=== PATIENT | female | born 1955 | race Caucasian/White ===

== ENCOUNTER → 2017-08-29 | Day surgery (SDC) | payer OTHER ==
[~2017-08-29] MED LIST: Lactated Ringers 1,000 ML IV SCH; Lidocaine 1% 4 ML ONE; Ondansetron 4 MG/2 ML SDV ONE; Propofol 200 MG/20 ML SDV ONE; Sodium Chloride 0.9% 10 ML Syringe FLUSH PRN; fentaNYL 100 MCG/2 ML SDV ONE
[2017-08-29] MEDS: Lidocaine 1%/Sod Bicarbonate in NS 8.4% 1 ML Syringe IDERM PRN ×2 (07:19→07:20)
--- NOTE | 2017-08-29 07:43 | PCM.PREANE ---
Preanesthetic Assessment - Anesthesia/Transfusion/Family Hx Anesthesia History: Prior Anesthesia Without Reaction Family History of Anesthesia Reaction: No - Review of Systems General: Fatigue Pulmonary: No Symptoms Cardiovascular: No Symptoms Gastrointestinal: No Symptoms Neurological: No Symptoms Other: Reports: None - Physical Assessment NPO Status Date: 08/28/17 NPO Status Time: 20:30 O2 Sat by Pulse Oximetry: 97 Respiratory Rate: 16 Vital Signs: Last Vital Signs Temp 36.4 C 08/29/17 07:00 Pulse 75 08/29/17 07:00 Resp 16 08/29/17 07:00 BP 111/79 08/29/17 07:00 Pulse Ox 97 08/29/17 07:00 Height: 1.75 m Weight: 68.946 kg ASA Class: 1 Mental Status: Alert & Oriented x3 Airway Class: Mallampati = 2 Dentition: Reports: Normal Dentition Thyro-Mental Finger Breadths: 2 Mouth Opening Finger Breadths: 2 ROM/Head Extension: Full Lungs: Clear to Auscultation, Normal Respiratory Effort Cardiovascular: Regular Rate, Regular Rhythm - Allergies Allergies/Adverse Reactions: Allergies Allergy/AdvReac Type Severity Reaction Status Date / Time No Known Allergies Allergy Verified 08/28/17 13:28 - Acknowledgements Anesthesia Type Planned: MAC Pt an Appropriate Candidate for the Planned Anesthesia: Yes Alternatives and Risks of Anesthesia Discussed w Pt/Guardian: Yes Pt/Guardian Understands and Agrees with Anesthesia Plan: Yes PreAnesthesia Questionnaire HEENT History: Reports: Allergic Rhinitis, Impaired Vision Cardiovascular History: Reports: None Respiratory History: Reports: Other (See Below) Other Respiratory History: URI, pharyngitits Gastrointestinal History: Reports: Colon Polyp Genitourinary History: Reports: None KEY ACCOUNT REPRESENTATIVE History: Reports: None Musculoskeletal History: Reports: None Neurological History: Reports: None Psychiatric History: Reports: Other (See Below) Other Psychiatric History: fatigue, grief reaction Endocrine/Metabolic History: Reports: Vitamin D Deficiency Hematologic History: Reports: None Immunologic History: Reports: None Oncologic (Cancer) History: Reports: Basal Cell Carcinoma Dermatologic History: Reports: None - Past Surgical History Head Surgeries/Procedures: Reports: None HEENT Surgical History: Reports: Naso-Sinus Surgery, Tonsillectomy Cardiovascular Surgical History: Reports: None Respiratory Surgical History: Reports: None GI Surgical History: Reports: Appendectomy, Colonoscopy Female Surgical History: Reports: Tubal Ligation Male Surgical History: Reports: None Endocrine Surgical History: Reports: None Neurological Surgical History: Reports: None Musculoskeletal Surgical History: Reports: None Oncologic Surgical History: Reports: None Dermatological Surgical History: Reports: None - SUBSTANCE USE Smoking Status *Q: Never Smoker Recreational Drug Use History: No - HOME MEDS Home Medications: Home Meds Cholecalciferol (Vitamin D3) [Vitamin D3] 50,000 units PO MOFR 08/28/17 [History ] Cyanocobalamin (Vitamin B-12) [Vitamin B-12] 1,000 mcg PO DAILY 08/28/17 [ History] Melatonin 5 mg PO DAILY 08/28/17 [History] Multivitamin [Multi-Day Vitamins] 1 tab PO DAILY 08/28/17 [History] - CURRENT (IN HOUSE) MEDS Current Meds: Current Medications Lactated Ringer's (Ringers, Lactated) 1,000 mls @ 125 mls/hr IV ASDIRECTED ANTOLIN Lidocaine/Sodium Bicarbonate (Buffered Lidocaine 1% In Ns 8.4%) 0.25 ml IDERM ONETIME PRN PRN Reason: Prior to IV Start Sodium Chloride (Saline Flush) 10 ml FLUSH ASDIRECTED PRN PRN Reason: Keep Vein Open Discontinued Medications Fentanyl (Sublimaze) Confirm Administered Dose 100 mcg .ROUTE .STK-MED ONE Stop: 08/29/17 07:27 Lidocaine HCl (Xylocaine-Mpf 1%) Confirm Administered Dose 4 mls @ as directed .ROUTE .STK-MED ONE Stop: 08/29/17 07:26 Propofol (Diprivan 20 Ml) Confirm Administered Dose 400 mg .ROUTE .STK-MED ONE Stop: 08/29/17 07:27
--- NOTE | 2017-08-29 08:32 | PCM.OPNOTE ---
- General Post-Op/Procedure Note Date of Surgery/Procedure: 08/29/17 Operative Procedure(s): Colonoscopy Findings: Sigmoid diverticulosis Tortuous colon Vacuous colon Pre Op Diagnosis: Screening colonoscopy Post-Op Diagnosis: Uncomplicated sigmoid diverticulosis Anesthesia Technique: MAC, Moderate Sedation Primary Surgeon: Zac Guillen EBL in mLs: 0 Complications: None Condition: Good Free Text/Narrative:: After adequate IV sedation and analgesia was obtained with monitoring the patient was placed on her left side. Perianal inspection and digital rectal examination were performed and were normal. A lubricated colonoscope was inserted into the rectum then slowly advanced through a very tortuous and vacuous colon using abdominal pressure and placement in the supine position to reach the cecum. The appendiceal orifice and ileocecal valve were identified. The bowel preparation was excellent. The cecum ascending colon transverse and descending colons were endoscopically normal with no mass lesions or inflammatory changes seen. The sigmoid had a few scattered diverticuli which I photographed for the record. The rectum in both views was unremarkable. Air was removed as I finished the procedure which she tolerated well. There were no procedural complications.
--- NOTE | 2017-08-29 08:36 | PCM48HPAN ---
Post Anesthesia Note - EVALUATION WITHIN 48HRS OF ANESTHETIC Vital Signs in Normal Range: Yes Patient Participated in Evaluation: Yes Respiratory Function Stable: Yes Airway Patent: Yes Cardiovascular Function Stable: Yes Hydration Status Stable: Yes Pain Control Satisfactory: Yes Nausea and Vomiting Control Satisfactory: Yes Mental Status Recovered: Yes
== END | disposition home or self-care (01) ==
LOC: JD.SDS 06:54
PROVIDERS: ATTEND Surgery
DX: Z12.11 Encounter for screening for malignant neoplasm of colon (principal); K57.30 Diverticulosis of large intestine without perforation or abscess without bleeding; J30.9 Allergic rhinitis, unspecified; J02.9 Acute pharyngitis, unspecified; E55.9 Vitamin D deficiency, unspecified; Z79.899 Other long term (current) drug therapy; Z90.49 Acquired absence of other specified parts of digestive tract; Z90.89 Acquired absence of other organs; Z98.51 Tubal ligation status; Z98.890 Other specified postprocedural states; Z80.0 Family history of malignant neoplasm of digestive organs
CPT/HCPCS: 45378; J2405; J3010; J7120; 00812; J2001; J2704

== ENCOUNTER 2020-04-11 06:51 | Day surgery (SDC) | payer OTHER ==
[~2020-04-11 06:51] MED LIST changes: -Lidocaine 1% 4 ML ONE; +Lidocaine 1%/Sod Bicarbonate in NS 8.4% 1 ML Syringe IDERM PRN; -Ondansetron 4 MG/2 ML SDV ONE; -Propofol 200 MG/20 ML SDV ONE; -fentaNYL 100 MCG/2 ML SDV ONE
[2020-04-11] MEDS ORDERED: Propofol 200 MG/20 ML SDV ONE (07:15)
[2020-04-11] MEDS ORDERED: fentaNYL 100 MCG/2 ML SDV ONE (07:15)
[2020-04-11] MEDS ORDERED: Midazolam 1 MG/ML 2 ML SDV ONE (07:15)
[2020-04-11] MEDS ORDERED: Ondansetron 4 MG/2 ML SDV ONE (07:16)
[2020-04-11] MEDS ORDERED: Lidocaine 1% with EPINEPHrine 1:100,000 20 ML MDV ONE (07:21)
[2020-04-11] MEDS ORDERED: Sodium Chloride 0.9% 20 ML ONE (07:21)
[2020-04-11] MEDS ORDERED: Lidocaine 1% 4 ML ONE (07:23)
--- NOTE | 2020-04-11 07:46 | PCM.PREANE ---
Preanesthetic Assessment - Procedure Proposed Procedure: Bladder sling - Anesthesia/Transfusion/Family Hx Anesthesia History: Prior Anesthesia Without Reaction Transfusion History: Unknown - Review of Systems General: No Symptoms Pulmonary: No Symptoms Cardiovascular: No Symptoms Gastrointestinal: No Symptoms Neurological: No Symptoms Other: Reports: None - Physical Assessment NPO Status Date: 04/10/20 NPO Status Time: 19:00 ASA Class: 2 Mental Status: Alert & Oriented x3 Airway Class: Mallampati = 2 Dentition: Reports: Normal Dentition Thyro-Mental Finger Breadths: 3 Mouth Opening Finger Breadths: 3 ROM/Head Extension: Full Lungs: Clear to Auscultation, Normal Respiratory Effort Cardiovascular: Regular Rate, Regular Rhythm - Allergies Allergies/Adverse Reactions: Allergies Allergy/AdvReac Type Severity Reaction Status Date / Time No Known Allergies Allergy Verified 04/11/20 08:22 - Anesthesia Plan Beta Coco: Metoprolol Med Last Dose Date: 04/11/20 Med Last Dose Time: 06:00 - Acknowledgements Anesthesia Type Planned: General Anesthesia Pt an Appropriate Candidate for the Planned Anesthesia: Yes Alternatives and Risks of Anesthesia Discussed w Pt/Guardian: Yes Pt/Guardian Understands and Agrees with Anesthesia Plan: Yes PreAnesthesia Questionnaire HEENT History: Reports: Allergic Rhinitis, Impaired Vision Cardiovascular History: Reports: High Cholesterol, Other (See Below) Other Cardiovascular History: ABNORMAL STRESS TEST, T WAVE INVERSION Respiratory History: Reports: Other (See Below) Other Respiratory History: URI, pharyngitits Gastrointestinal History: Reports: Colon Polyp, Other (See Below) Other Gastrointestinal History: BILATERAL GROIN PAIN, DIARRHEA, FECAL URGENCY Genitourinary History: Reports: Other (See Below) Other Genitourinary History: STRESS URINARY INCONTINENCE 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 Musculoskeletal History: Reports: Other (See Below) Other Musculoskeletal History: LUMBAR BACK PAIN, LEG PAIN Neurological History: Reports: Other (See Below) Other Neuro History: BILATERAL FEET NUMBNESS AND TINGLING Psychiatric History: Reports: Other (See Below) Other Psychiatric History: fatigue, grief reaction Endocrine/Metabolic History: Reports: Vitamin D Deficiency Hematologic History: Reports: None Immunologic History: Reports: None Oncologic (Cancer) History: Reports: Basal Cell Carcinoma Dermatologic History: Reports: Other (See Below) Other Dermatologic History: BASAL CELL CARCINOMA - Past Surgical History Head Surgeries/Procedures: Reports: None HEENT Surgical History: Reports: Naso-Sinus Surgery, Tonsillectomy Cardiovascular Surgical History: Reports: None Respiratory Surgical History: Reports: None GI Surgical History: Reports: Appendectomy, Colonoscopy Female Surgical History: Reports: Tubal Ligation Male Surgical History: Reports: None Endocrine Surgical History: Reports: None Neurological Surgical History: Reports: None Musculoskeletal Surgical History: Reports: None Oncologic Surgical History: Reports: None Dermatological Surgical History: Reports: None - SUBSTANCE USE Tobacco Use Status *Q: Never Tobacco User Days Per Week of Alcohol Use: 3 Number of Drinks Per Day: 1 Total Drinks Per Week: 3 - HOME MEDS Home Medications: Home Meds Cholecalciferol (Vitamin D3) [Vitamin D3] 50,000 units PO ULLOA 08/28/17 [History] Melatonin 5 mg PO BEDTIME PRN 08/28/17 [History] Multivitamin [Multi-Day Vitamins] 1 tab PO DAILY 08/28/17 [History] Acetaminophen [Tylenol Arthritis] 650 mg PO Q4H PRN 04/10/20 [History] Cholecalciferol (Vitamin D3) [Vitamin D3] 2,000 unit PO [id number] 04/10/20 [History] Inulin [Fiber Gummies] 2 gm PO DAILY 04/10/20 [History] Metoprolol Tartrate 12.5 mg PO BID 04/10/20 [History] Oxybutynin [Oxytrol] 1 patch TOP ASDIRECTED PRN 04/10/20 [History] - CURRENT (IN HOUSE) MEDS Current Meds: Current Medications Lactated Ringer's (Ringers, Lactated) 1,000 mls @ 125 mls/hr IV ASDIRECTED ANTOLIN Stop: 04/11/20 23:00 Lidocaine/Sodium Bicarbonate (Buffered Lidocaine 1% In Ns 8.4%) 0.25 ml IDERM ONETIME PRN PRN Reason: Prior to IV Start Stop: 04/11/20 18:00 Sodium Chloride (Saline Flush) 10 ml FLUSH ASDIRECTED PRN PRN Reason: Keep Vein Open Stop: 04/11/20 18:00 Discontinued Medications Fentanyl (Sublimaze) Confirm Administered Dose 100 mcg .ROUTE .STK-MED ONE Stop: 04/11/20 07:16 Sodium Chloride (Normal Saline) Confirm Administered Dose 20 mls @ as directed .ROUTE .STK-MED ONE Stop: 04/11/20 07:22 Lidocaine HCl (Xylocaine-Mpf 1%) Confirm Administered Dose 4 mls @ as directed .ROUTE .STK-MED ONE Stop: 04/11/20 07:24 Lidocaine/Epinephrine (Xylocaine 1% With Epinephrine 1:100,000) Confirm Administered Dose 20 ml .ROUTE .STK-MED ONE Stop: 04/11/20 07:22 Midazolam HCl (Versed 1 Mg/Ml) Confirm Administered Dose 2 mg .ROUTE .STK-MED ONE Stop: 04/11/20 07:16 Ondansetron HCl (Zofran) Confirm Administered Dose 8 mg .ROUTE .STK-MED ONE Stop: 04/11/20 07:17 Propofol (Diprivan 20 Ml) Confirm Administered Dose 200 mg .ROUTE .STK-MED ONE Stop: 04/11/20 07:16
[2020-04-11] MEDS ORDERED: HYDROmorphone 0.5 MG/0.5 ML Syringe IVPUSH PRN (09:04)
[2020-04-11] MEDS ORDERED: fentaNYL 100 MCG/2 ML SDV IVPUSH PRN (09:04)
--- NOTE | 2020-04-11 09:05 | PCM.OPNOTE ---
- General Post-Op/Procedure Note Date of Surgery/Procedure: 04/11/20 Operative Procedure(s): Tension free transvaginal tape mid urethral sling with cystoscopy Findings: Grade 2 cystocele with otherwise normal-appearing vaginal mucosa. Normal- appearing bladder mucosa with ureteral jetting noted from bilateral ureteral openings. Pre Op Diagnosis: Stress urinary incontinence Post-Op Diagnosis: Same Anesthesia Technique: General LMA Primary Surgeon: Bogdan Clemons Anesthesia Provider: Bo Taylor Benefits Specialist Recruiter: Rufino Vee Benefits Specialist Recruiter: Ealina Maya I ([place] student) Reason Benefits Specialist Recruiter Was Necessary: Patient safety and reduction of morbidity and mortality Role of Benefits Specialist Recruiter: Retraction for visualization Pathology: None Fluid Replacement, Intraop: 900 Output, Urine Amount: 30 EBL in mLs: 15 Complications: None Condition: Good Free Text/Narrative:: Procedure in detail: The patient was seen in the preoperative holding area and risks, benefits, indications, and alternatives of the procedure were reviewed with the patient and she desired to proceed with a mid urethral sling with possible cystoscopy. Consents were reviewed. The patient was taken back to the operating room and given general anesthesia with an laryngeal mask airway that was placed without difficulty. The patient was placed in dorsal lithotomy position using yellowfin stirrups. She was prepped and draped in normal sterile fashion. The bladder was drained using a red rubber catheter. A weighted speculum was placed into the vagina and an Allis clamp was placed approximately 2 cm below the urethral opening. A second Allis clamp was placed 2 cm below the first Allis clamp. The vaginal mucosa was then injected with 0.25% lidocaine with epinephrine. A scalpel was used to make a midline incision through the vaginal mucosa. Laughlin scissors were used to dissect the vaginal mucosa from the underlying tissue on the patient's right side. This was carried out to the pubic rami. This was repeated on the left side and completed without difficulty. Attention was then turned to the patient's mons and the skin was injected with 0.25% lidocaine with epinephrine in the bilateral sides approximately 2 cm from midline. A stab incision was made with a scalpel on the bilateral sides without complications. The urethral sling hook was then used on the patient's right side and placed through the stab incision and with a finger in the vagina behind the pubic rami, the tip of the hook was felt and then directed out through the midline vaginal incision. Attention was then turned to the patient's right side where, again, the urethral sling hook was placed through the stab incision and with a finger in the vagina was directed posterior to the lateral pubic rami and directed through the vaginal incision. The bladder was then filled with 250 mL of sterile saline through the previously inserted urethral catheter. The urethral catheter was removed at this time. A simple cystoscopy was performed and evaluation of the bilateral bladder coffman did not show any evidence of injury. There was bilateral ureteral jetting noted with cystoscopy. The cystoscopy portion of the procedure was completed at this time. The transvaginal tape was attached to the hook and pulled through the incision. The other end of the tape was attached to the hook and pulled through, making sure that the tape was flat under the patient's urethra. A Laughlin scissors was used between the urethral sling and urethra to allow for a tension-free placement of the tape. The ends of the tape were then cut at the level of the skin on the patient on both sides at the stab incisions. Attention was then turned to the midline incision, which was closed using 3-0 Monocryl in a running fashion. The skin incisions were closed using Dermabond glue. Procedure was completed at this time. Instrument, sponge and needle count was correct x2 at the end of the case. Bogdan Clemons MD 9:05 AM 04/11/2020
--- NOTE | 2020-04-11 09:07 | PCM.POSTAN ---
POST ANESTHESIA ASSESSMENT - MENTAL STATUS Mental Status: Somnolent - VITAL SIGNS Vital Signs: Last Vital Signs Temp 97.0 F 04/11/20 09:00 Pulse 65 04/11/20 07:10 Resp 9 L 04/11/20 09:00 BP 123/74 04/11/20 09:00 Pulse Ox 93 L 04/11/20 09:00 - RESPIRATORY Respiratory Status: Respiratory Rate WNL, Airway Patent, O2 Saturation Stable - CARDIOVASCULAR CV Status: Pulse Rate WNL, Blood Pressure Stable - GASTROINTESTINAL GI Status: No Symptoms - PAIN Pain Score: 0 - POST OP HYDRATION Hydration Status: Adequate & Stable
[2020-04-11] MEDS ORDERED: Ketorolac 30 MG/ML SDV IVPUSH ONE (10:00)
--- NOTE | 2020-04-11 10:13 | PCM48HPAN ---
Post Anesthesia Note - EVALUATION WITHIN 48HRS OF ANESTHETIC Vital Signs in Normal Range: Yes Patient Participated in Evaluation: Yes Respiratory Function Stable: Yes Airway Patent: Yes Cardiovascular Function Stable: Yes Hydration Status Stable: Yes Pain Control Satisfactory: Yes Nausea and Vomiting Control Satisfactory: Yes Mental Status Recovered: Yes Vital Signs: Last Vital Signs Temp 97.2 F 04/11/20 09:40 Pulse 65 04/11/20 07:10 Resp 13 04/11/20 09:40 BP 113/68 04/11/20 09:40 Pulse Ox 96 04/11/20 09:40
== END 2020-04-11 11:00 | disposition home or self-care (01) ==
LOC: JD.SDS 06:51
PROVIDERS: ATTEND Obstetrics & Gynecology
DX: N39.3 Stress incontinence (female) (male) (principal); N32.81 Overactive bladder; R15.9 Full incontinence of feces; E55.9 Vitamin D deficiency, unspecified; G89.29 Other chronic pain; E78.00 Pure hypercholesterolemia, unspecified; Z01.812 Encounter for preprocedural laboratory examination; Z20.828 Contact with and (suspected) exposure to other viral communicable diseases; Z79.899 Other long term (current) drug therapy; Z90.49 Acquired absence of other specified parts of digestive tract; Z98.890 Other specified postprocedural states
CPT/HCPCS: 57288; 81003; J1885; J2001; J2250; J2405; J2704; J3010; J7120; 00860; C1771